=== PATIENT | female | born 1950 | race Caucasian/White ===

== ENCOUNTER 2020-08-11 08:34 | Day surgery (SDC) | payer MEDICARE ==
[~2020-08-11] VITALS: Ht 162.6 cm; Wt 53.2 kg
[~2020-08-11 08:34] MED LIST: BUPIVACAINE/PF 0.5% ONE; LIDOCAINE/PF 1%, 30ML ONE; OXYC5CAP2 PO; levothyroxine PO; metoprolol tartrate PO
[2020-08-11 08:56] VITALS: BP 122/79
[2020-08-11] MEDS ORDERED: CHLORHEXIDINE 15 ML UDC PO ONE (09:00)
[2020-08-11] MEDS ORDERED: LIDOCAINE-MPF 1%, 2ML ONE (09:03)
[2020-08-11] MEDS ORDERED: CHLORHEXIDINE 15 ML UDC ONE (09:03)
[2020-08-11] MEDS ORDERED: LACTATED RINGERS 1,000 ML IV SCH (10:00)
[2020-08-11] MEDS ORDERED: LIDOCAINE-MPF 1%, 2ML INFIL ONE (10:00)
[2020-08-11] MEDS ORDERED: METOPROLOL 1 MG/ML, 5ML ONE (10:03)
[2020-08-11] MEDS ORDERED: FENTANYL PF 100 MCG/2ML ONE ×4 (10:06→12:27)
[2020-08-11] MEDS ORDERED: CEFAZOLIN 1,000 MG ONE (11:47)
[2020-08-11] MEDS ORDERED: GLYCOPYRROLATE 0.2MG/1ML, 5ML ONE (11:47)
[2020-08-11] MEDS ORDERED: ONDANSETRON 2MG/ML, 2ML ONE (11:47)
[2020-08-11] MEDS ORDERED: PROPOFOL 10 MG/ML, 20ML ONE (11:47)
[2020-08-11] MEDS ORDERED: SUCCINYLCHOLINE 20 MG/ML, 10ML ONE (11:47)
[2020-08-11] MEDS ORDERED: ROCURONIUM 10MG/ML,5ML ONE (11:47)
[2020-08-11] MEDS ORDERED: NEOSTIGMINE 1 MG/ML, 10ML ONE (11:47)
[2020-08-11] MEDS ORDERED: DEXAMETHASONE 4 MG/ML, 1ML ONE (11:47)
[2020-08-11] MEDS ORDERED: KETOROLAC 30 MG/1 ML ONE (11:49)
[2020-08-11] MEDS ORDERED: PROMETHAZINE 25 MG/ML, 1ML IV PRN (12:00)
[2020-08-11] MEDS ORDERED: LABETALOL 5MG/ML, 20ML IV PRN (12:00)
[2020-08-11] MEDS ORDERED: hydrALAzine 20 MG/ML, 1ML IV PRN (12:00)
[2020-08-11] MEDS ORDERED: KETOROLAC 30 MG/1 ML IV PRN (12:00)
[2020-08-11] MEDS ORDERED: ACETAMINOPHEN 325 MG TABLET PO PRN (12:00)
[2020-08-11] MEDS ORDERED: DIAZEPAM 5 MG/ML, 2ML IVPush PRN (12:00)
[2020-08-11] MEDS ORDERED: MEPERIDINE/PF 25MG/0.5ML IVPush PRN (12:00)
[2020-08-11] MEDS ORDERED: HYDROmorphone 2 MG/ML, 1ML IVPush PRN (12:00)
[2020-08-11] MEDS ORDERED: ALBUTEROL SULFATE 2.5 MG/3 ML NPPB PRN (12:00)
[2020-08-11] MEDS: OXYcodone 5 MG/5 ML ORAL.SOL UDC PO PRN ×2 (12:15→12:39)
[2020-08-11] MEDS ORDERED: ACETAMINOPHEN 650 MG/20.3 ML UDC ONE (12:15)
[2020-08-11] MEDS ORDERED: OXYcodone 5 MG/5 ML ORAL.SOL UDC ONE ×2 (12:16→12:39)
[2020-08-11] MEDS: FENTANYL PF 100 MCG/2ML IV PRN ×4 (12:25→12:41)
[2020-08-11] MEDS ORDERED: LABETALOL 5MG/ML, 20ML ONE (12:54)
== END 2020-08-11 16:09 | disposition home or self-care (01) ==
LOC: OUT 08:34
PROVIDERS: ATTEND Orthopaedic Surgery
DX: S52.571A Other intraarticular fracture of lower end of right radius, initial encounter for closed fracture (principal); M79.7 Fibromyalgia; M19.90 Unspecified osteoarthritis, unspecified site; Z20.822 Contact with and (suspected) exposure to COVID-19; Z79.890 Hormone replacement therapy; Z79.899 Other long term (current) drug therapy; Z98.51 Tubal ligation status; Z98.890 Other specified postprocedural states; Z82.61 Family history of arthritis; W18.39XA Other fall on same level, initial encounter; Y93.89 Activity, other specified; Y92.89 Other specified places as the place of occurrence of the external cause; Y99.8 Other external cause status
CPT/HCPCS: 25609; 73100; 93005; C1713; C1762; C1776; J0330; J0690; J1100; J1885; J2405; J2704; J2710; J3010; J7120; U0003; U0005; 76000